=== PATIENT | male | born 1975 | race Caucasian/White ===

== ENCOUNTER 2018-04-10 11:26 | Emergency (ER) | payer BC ==
[~2018-04-10] VITALS: Ht 185.4 cm; Wt 104.5 kg
[2018-04-10] MEDS ORDERED: CYCLOBENZAPRINE10 M1 PO (12:08)
[2018-04-10] MEDS ORDERED: NORCO 325 MG-51 TA1 PO (12:08)
[2018-04-10 12:11] VITALS: BP 138/88
--- NOTE | 2018-04-11 18:00 | NUR ---
[facility] IN [place] CALLED. WILL NOT FILL INITIAL RX FOR NARCOTICS GREATER THAN #50. THE WRITTEN RX WAS FOR >#60. PHARMACIST INSTRUCTED TO CHANGE ORDER TO 10/DAY FOR A TOTAL OF #50.
== END 2018-04-10 12:12 | disposition home or self-care (01) ==
LOC: ED 11:26
DX: G89.29 Other chronic pain (principal); M54.9 Dorsalgia, unspecified; M48.00 Spinal stenosis, site unspecified; F17.200 Nicotine dependence, unspecified, uncomplicated